=== PATIENT | female | born 1950 | race Caucasian/White ===

== ENCOUNTER → 2020-12-08 | Outpatient (CLI) | payer MEDICARE ==
[~2020-12-08] MED LIST: ASPI81TA45 PO; DULA1.5P SQ; EMPA1TAB21 PO; HYDR-3237 PO; INSU200I4 SQ; LEVO112T4 PO; MAGN400T9 PO; MELO15TA24 PO; METO-264 PO; MULT-449 PO; OMEP20TA62 PO; ROTI1PAT2 TP; SIMV40TA20 PO; TRIA10.8 NS; VIT1CAPS42 PO; calcium citrate PO
[2020-12-08 12:34] LABS: ALANINE AMINOTRANSFERASE 29 U/L (12-78); ALBUMIN 3.8 g/dL (3.4-5.0); ANION GAP 7 mmol/L (5-15); CALCIUM 9.6 mg/dL (8.5-10.1); CHLORIDE 105 mmol/L (98-107)
[2020-12-08 12:36] LABS: ALKALINE PHOSPHATASE 65 U/L (45-117); BILIRUBIN,TOTAL 1.1 mg/dL (0.2-1.0); TOTAL PROTEIN 7.3 g/dL (6.4-8.2)
== END | disposition home or self-care (01) ==
LOC: STAR 11:29
PROVIDERS: ATTEND Otolaryngology
DX: Z01.818 Encounter for other preprocedural examination (principal); J32.4 Chronic pansinusitis; J34.2 Deviated nasal septum
CPT/HCPCS: 36415; 80053; 93005

== ENCOUNTER 2020-12-13 09:55 | Day surgery (SDC) | payer MEDICARE ==
[~2020-12-13] VITALS: Ht 170.2 cm; Wt 122.6 kg
[2020-12-13] MEDS ORDERED: OXYcodone 5 MG/5 ML ORAL.SOL UDC PO PRN (10:30)
[2020-12-13] MEDS ORDERED: HYDROcodone/APAP 7.5-325MG/15ML UDC PO PRN (10:30)
[2020-12-13] MEDS ORDERED: PROMETHAZINE 25 MG/ML, 1ML IVPush PRN (10:30)
[2020-12-13] MEDS ORDERED: MEPERIDINE/PF 25MG/0.5ML IVPush PRN (10:30)
[2020-12-13] MEDS ORDERED: ONDANSETRON 2MG/ML, 2ML IVPush PRN (10:30)
[2020-12-13] MEDS ORDERED: HYDROmorphone 1 MG/ML, 1ML INJ IVPush PRN (10:30)
[2020-12-13] MEDS ORDERED: MIDAZOLAM 1 MG/ML, 2ML ONE (10:37)
[2020-12-13] MEDS ORDERED: FENTANYL PF 100 MCG/2ML ONE ×3 (10:37→15:57)
[2020-12-13 10:52] VITALS: BP 168/82
[2020-12-13] MEDS ORDERED: CHLORHEXIDINE 15 ML UDC PO ONE (11:00)
[2020-12-13] MEDS ORDERED: LACTATED RINGERS 1,000 ML IV SCH (11:00)
[2020-12-13] MEDS ORDERED: BACITRACIN/POLYMIXIN B SULFATE OINT 14 GM ONE (11:09)
[2020-12-13] MEDS ORDERED: LIDOCAINE/PF 1%-EPI 1:200K, 30 ML ONE (11:09)
[2020-12-13] MEDS ORDERED: OXYMETAZOLINE NASAL SPRAY 0.05%,30ML ONE (11:10)
[2020-12-13] MEDS ORDERED: EPINEPHRINE TOPICAL SOLN 1 MG/ML, 30ML ONE (11:19)
[2020-12-13] MEDS ORDERED: CHLORHEXIDINE 15 ML UDC ONE (11:22)
[2020-12-13] MEDS ORDERED: GLYCOPYRROLATE 0.2MG/1ML, 5ML ONE (11:31)
[2020-12-13] MEDS ORDERED: ROCURONIUM 10 MG/ML,10ML ONE (11:31)
[2020-12-13] MEDS ORDERED: CEFAZOLIN 1,000 MG ONE (11:31)
[2020-12-13] MEDS ORDERED: DEXAMETHASONE 4 MG/ML, 1ML ONE (11:31)
[2020-12-13] MEDS ORDERED: NEOSTIGMINE 1 MG/ML, 10ML ONE (11:31)
[2020-12-13] MEDS ORDERED: ONDANSETRON 2MG/ML, 2ML ONE (11:31)
[2020-12-13] MEDS ORDERED: hydrALAzine 20 MG/ML, 1ML ONE (11:31)
[2020-12-13] MEDS ORDERED: PROPOFOL 10 MG/ML, 20ML ONE (11:31)
[2020-12-13] MEDS ORDERED: SUCCINYLCHOLINE 20 MG/ML, 10ML ONE (11:31)
[2020-12-13] MEDS ORDERED: LIDOCAINE 1%, 20ML ONE (12:19)
[2020-12-13] MEDS ORDERED: LABETALOL 5MG/ML, 20ML ONE (15:36)
[2020-12-13] MEDS: LABETALOL 5MG/ML, 20ML IV PRN ×3 (15:40→16:45)
[2020-12-13] MEDS ORDERED: OXYcodone 5 MG/5 ML ORAL.SOL UDC ONE (15:57)
[2020-12-13] MEDS: FENTANYL PF 100 MCG/2ML IV PRN ×3 (15:59→16:30)
== END 2020-12-13 18:18 | disposition home or self-care (01) ==
LOC: OUT 09:55
PROVIDERS: ATTEND Otolaryngology
DX: J32.4 Chronic pansinusitis (principal); J34.2 Deviated nasal septum; E11.9 Type 2 diabetes mellitus without complications; I10 Essential (primary) hypertension; G43.909 Migraine, unspecified, not intractable, without status migrainosus; E66.01 Morbid (severe) obesity due to excess calories; Z68.41 Body mass index [BMI] 40.0-44.9, adult; Z79.1 Long term (current) use of non-steroidal anti-inflammatories (NSAID); Z79.890 Hormone replacement therapy; Z79.891 Long term (current) use of opiate analgesic; Z79.899 Other long term (current) drug therapy; Z88.2 Allergy status to sulfonamides; Z88.8 Allergy status to other drugs, medicaments and biological substances; Z98.890 Other specified postprocedural states; Z83.3 Family history of diabetes mellitus; Z82.49 Family history of ischemic heart disease and other diseases of the circulatory system
CPT/HCPCS: 30140; 30520; 31253; 31256; 31257; 31267; 82962; 87070; 87075; 87205; 88304; 88311; J0330; J0360; J0690; J1100; J2250; J2405; J2704; J2710; J3010; J7402

== ENCOUNTER 2020-12-20 08:11 | Day surgery (SDC) | payer MEDICARE ==
[~2020-12-20] VITALS: Ht 170.2 cm; Wt 122.0 kg
[2020-12-20 08:33] VITALS: BP 152/72
[2020-12-20] MEDS ORDERED: LIDOCAINE 4%, 4 ML SYR/CANN TP ONE (09:50)
== END 2020-12-20 10:08 | disposition home or self-care (01) ==
LOC: OUT 08:11
PROVIDERS: ATTEND Otolaryngology
DX: J32.2 Chronic ethmoidal sinusitis (principal); Z20.822 Contact with and (suspected) exposure to COVID-19
CPT/HCPCS: 87635